=== PATIENT | female | born 1940 | race Caucasian/White ===

== ENCOUNTER → 2017-02-05 | Outpatient (CLI) | payer MEDICARE, BC ==
[~2017-02-05] MED LIST: ATARAX PO; BUSPAR PO; BUSPAR15 M2; DESYREL50 MG; FLAGYL PO; LAMICTAL25 MG PO; LEVAQUIN PO; OXYCONTIN20 MG PO; PAXIL PO; PAXIL40 MG PO; PERIACTIN4 MG PO; PHENERGAN PO; PRILOSEC40 MG PO; ROBAXIN 750750 M1 PO; SEROQUEL PO; TEMAZEPAM PO; [UNRECOGNIZED DRUG - CODE] PO; [UNRECOGNIZED DRUG - OTHER]
--- NOTE | ~2017-02-05 | CO ---
Unit #: [id number] #: [id number] Patient: SHYANNE MIRANDA [id number] [address] [place], [place] [address] [id number] O MR#: [id number] NAME: SHYANNE MIRANDA ROOM: Age: 76 Sex: F Admission Date: 02/05/2017 : 1940 Attending Physician: Felix Bill M.D. Primary Care Physician: Rudy Hill Jr., M.D. Consultation Date: 02/05/2017 CONSULTATION REPORT REASON FOR CONSULTATION Preoperative medical evaluation prior to left total knee arthroplasty scheduled by Dr. Bill for 02/19/2017. HISTORY OF PRESENT ILLNESS The patient is a 76-year-old female, who presents to preprocedural screening for the reason as indicated above. The patient is noted to be a very poor historian and is known to have a history of retrograde amnesia per review of medical records and [facility]. The patient's history is obtained from review of medical records and [facility] and Dr. Bill's office notes today. The patient complains of left knee pain. She has no other complaints at the time of this interview. Per review of medical records and per discussion with the patient, she has no history of myocardial infarction, congestive heart failure, CVA. She reports history of TIA. No known history of kidney disease and/or diabetes. She denies orthopnea, PND, lightheadedness or dizziness, presyncope, syncope, or palpitations. PAST MEDICAL HISTORY 1. Hyperglycemia. 2. Possible COPD is documented per Dr. Graham in [facility]. 3. TIA years ago. 4. Urinary retention. Bladder stone removal. 5. Depression and anxiety. 6. Schizophrenia and bipolar disorder. 7. Retrograde amnesia. 8. History of diverticulitis. 9. Acid reflux. 10. Hyperthyroidism. 11. Anemia. 12. Osteoarthritis. 13. Breast cancer in both breasts. PAST SURGICAL HISTORY 1. Right mastectomy. 2. Left mastectomy. 3. Appendectomy. 4. Hysterectomy. 5. Right rotator cuff repair. 6. Right total knee arthroplasty. 7. Bladder stone removal. 8. Cysto for bladder neck contracture. 9. Right hip fracture pinning. 10. Andrew fundoplication. Unit #: [id number] #: [id number] Patient: SHYANNE MIRANDA Please note, this patient reports having severe nausea and vomiting after receiving general anesthesia. ALLERGIES No known drug intolerances. MEDICATIONS The patient takes the following medications. Please note, the patient is going to call and confirm doses of all of these: OxyContin, Paxil, Desyrel, and BuSpar. SOCIAL HISTORY Denies tobacco use, EtOH use, or illicit drug use. FAMILY HISTORY Per review of Dr. Bill's office note, cancer. REVIEW OF SYSTEMS Other than complaints of left knee pain. A 10-point review of systems is negative except as indicated under history of present illness above. PHYSICAL EXAMINATION GENERAL: A 76-year-old female, awake, alert, in no acute distress. VITAL SIGNS: Temperature 96.9, heart rate 82, respiratory rate 20, blood pressure 136/84, oxygen saturation 95% on room air. HEENT: Atraumatic and normocephalic. Sclerae anicteric. No discharge from eyes, ears, or nares. LYMPH: No preauricular, postauricular, tonsillar, submental, anterior-posterior cervical supra or infraclavicular adenopathy. ENDOCRINE: No thyromegaly, thyroid nodules, or tenderness. RESPIRATORY: Clear to auscultation in all youssef bilaterally without wheezes, rhonchi, or rales. CARDIOVASCULAR: S1, S2. Regular rate and rhythm without murmur or rub. GI: Bowel sounds are positive x4. Soft, nontender, nondistended. EXTREMITIES: 1+ bilateral lower extremity edema. No cyanosis or clubbing. NEUROLOGIC: Cranial nerves II through XII grossly intact. Speech clear. Alert. DIAGNOSTIC STUDIES LABORATORY RESULTS: WBC 6.7, hemoglobin 12.4, hematocrit 38.5, platelets 269,000. Sodium 143, potassium 4.4, chloride 110, CO2 of 24, glucose 84, BUN 13, creatinine 0.9, calcium 9.2. AST 18, ALT 11, alkaline phos 83, bilirubin total 0.4, total protein 6.6, albumin 3.9. PTT 10.8, INR 1.0. Blood type A negative, antibody screen negative. Urinalysis pending at this time. MRSA screen pending at this time. IMAGING STUDIES: Two-view chest x-ray report pending at this time. CARDIOVASCULAR STUDIES: Normal sinus rhythm and normal voltage criteria for LVH may be normal variant confirmed tracing pending at this time. IMPRESSION The patient is a 76-year-old female with: 1. Osteoarthritis, presents to preprocedural screening for medical Unit #: [id number] #: [id number] Patient: SHYANNE MIRANDA evaluation prior to right total knee arthroplasty. The patient's Balderas revised cardiac risk index is equal to 1.0%. This represents the patient's risk of cardiac , fatal or nonfatal myocardial infarction, cardiopulmonary arrest, arrhythmia and/or pulmonary edema. This has been discussed in detail with the patient and her grandson, who is present during the interview today. They both verbalized understanding this information and the patient wishes to proceed with surgery as scheduled at this time. 2. Hypertension. Monitor and adjust medications postoperatively if indicated. 3. Hypothyroidism. TSH and free T4 pending at this time. 4. Depression and anxiety, stable. 5. History of bilateral breast cancer, status post bilateral mastectomy. 6. History of bipolar disorder. 7. History of schizophrenia. 8. History of chronic obstructive pulmonary disease. 9. History of transient ischemic attack and history of retrograde amnesia. Thank you for allowing us to participate in care of this patient. Again, this patient is a poor historian and information has been collected primarily from review of medical records and [facility] today. The patient is to call in the dosages and to confirm all medications dictated above. We will gladly follow her for postop medical management pending any further recommendations for preop evaluation by Dr. Bill and his order postoperatively. Dictated by... Teresita Tillman A.P.R.N. for Gi Cui/kelby TD: 02/06/2017 05:09 JOB #: [id number] CONSULTATION REPORT Page 1 of 1 X Teresita Tillman APRN X CONSULTATION REPORT
--- NOTE | ~2017-02-05 | CR63 ---
[facility] A Service of [facility] RADIOLOGY TEXT RESULTS PATIENT: SHYANNE MIRANDA LOCATION: [facility] : 38 UNIT #: [id number] AGE: [address]: Felix Bill MD SEX: F ORDER DR: [id number] [facility] [address] [place], [place] [address] [id number] O MR#: [id number] Acc #: [id number] NAME: SHYANNE MIRANDA : 1940 SEX: F STUDY DATE/TIME: 02/05/2017 14:46 UNIT: [facility] ROOM: STUDY DESCRIPTION: CR Chest 2 View Attending Physician: Felix Bill M.D. Ordering Physician: Felix Bill M.D. Primary Care Physician: Rudy Hill Jr., M.D. MEDICAL IMAGING REPORT This report is preliminary unless electronic signature is present EXAM Chest PA and lateral, 02/05/2017 HISTORY Preop left total knee arthroplasty. FINDINGS PA and lateral views of the chest are obtained and compared directly to the previous study of 10/21/2015. Heart size is normal. Lungs show underlying chronic interstitial lung disease particularly at the apices. There are postsurgical changes in the left axilla and in the epigastrium. No acute infiltrates are identified. CONCLUSION Underlying chronic interstitial lung disease. Postsurgical changes noted above. No acute process identified. Dictated by... Anshul Chong M.D. THIS IS AN ELECTRONICALLY VERIFIED REPORT Anshul Chong M.D. at 02/07/2017 3:10 PM Jennifer TD: 02/05/2017 20:42 JOB #: [id number] MEDICAL IMAGING REPORT Page 1 of 1 COPY
--- NOTE | ~2017-02-05 | EKG ---
PATIENT: SHYANNE MIRANDA UNIT #: [id number] Ventricular Rate: 78 BPM Atrial Rate: 78 BPM P-R Interval: 126 ms QRS Duration: 96 ms Q-T Interval: 402 ms QTC Calculation(Bezet): 458 ms P [place]: 12 degrees Calculated R [place]: 7 degrees Calculated T [place]: 49 degrees Diagnosis Line: Normal sinus rhythm Diagnosis Line: Minimal voltage criteria for LVH, may be normal Diagnosis Line: variant Diagnosis Line: Borderline ECG Diagnosis Line: When compared with ECG of 04-MAR-2013 05:28, Diagnosis Line: No significant change was found Diagnosis Line: Confirmed by EB BLACKBURN MD ([id number]) on Diagnosis Line: 02/06/2017 2:22:32 PM INTERPRETING MD: ALEXEY CARSON
[2017-02-05 12:25] LABS: HEMATOCRIT 38.5 % (35.0-45.0); HEMOGLOBIN 12.4 gm/dL (12.0-16.0); MEAN CELL VOLUME 82.9 FL (83-96); MEAN CORPUSCULAR HEMOGLOBIN 26.6 PG (28-34); MEAN CORPUSCULAR HGB CONC 32.1 g/dL (30-36); MEAN PLATELET VOLUME 7.4 FL (6.5-11.5); RED BLOOD COUNT 4.65 X10e (3.90-5.30); RED CELL DISTRIBUTION WIDTH 16.8 % (11.0-15.5); WHITE BLOOD COUNT 6.7 X10e3 (4.0-10.5)
[2017-02-05 12:34] LABS: PROTHROMBIN TIME (PATIENT) 10.8 SECONDS (9.6-11.5)
[2017-02-05 13:30] LABS: ALBUMIN SERUM 3.9 g/dL (3.5-5.0); ALKALINE PHOSPHATASE 83 U/L (32-92); ALT (SGPT) 11 U/L (10-40); AST (SGOT) 18 U/L (10-42); BILIRUBIN,TOTAL 0.4 mg/dL (0.2-2.0); BLOOD UREA NITROGEN 13 mg/dL (9-23); BUN/CREATININE RATIO 14.44; CALCIUM SERUM 9.2 mg/dL (8.4-10.2); CARBON DIOXIDE 24 mmol/L (22-31); CHLORIDE 110 mmol/L (100-111); CREATININE SERUM 0.9 mg/dL (0.6-1.4); GLOM FILT RATE Estimated ABOVE60 mL/min (>60); GLUCOSE FASTING 84 mg/dL (70-110); POTASSIUM 4.4 mmol/L (3.5-5.1); PROTEIN TOTAL SERUM 6.6 g/dL (6.0-8.3); SODIUM 143 mmol/L (135-145)
[2017-02-05 14:45] LABS: URINE APPEARANCE CLEAR; URINE BILIRUBIN NEG (NEG); URINE BLOOD NEG (NEG); URINE COLOR YELLOW; URINE GLUCOSE NEG (NEG); URINE KETONE NEG (NEG); URINE LEUKOCYTE ESTERASE 1+ (NEG); URINE NITRATE NEG (NEG); URINE PH 5.5 (5-8); URINE PROTEIN NEG (NEG); URINE SPECIFIC GRAVITY 1.017 (1.003-1.035); URINE UROBILINOGEN 0.2 MG/DL (NEG)
[2017-02-05 14:48] LABS: CULTURE INDICATED? YES; URBCS1 AUWI 0-2 /[HPF] (0-2); URINE BACTERIA AUWI NEG (NEGATIVE); URINE SQUAMOUS EPITHELIAL CELL NONE SEEN /[HPF]
[2017-02-05 15:07] LABS: THYROID STIMULATING HORMONE 5.48 uIU/ml (0.34-5.60)
[2017-02-05 15:14] LABS: FREE THYROXIN (T4) 0.55 ng/dL (0.58-1.64)
== END | disposition home or self-care (01) ==
LOC: CAMB 11:48
PROVIDERS: Orthopaedic Surgery
DX: Z01.818 Encounter for other preprocedural examination (principal); M17.12 Unilateral primary osteoarthritis, left knee; E03.9 Hypothyroidism, unspecified; I10 Essential (primary) hypertension; F41.8 Other specified anxiety disorders; Z98.890 Other specified postprocedural states; Z79.01 Long term (current) use of anticoagulants
CPT/HCPCS: 36415; 71020; 80053; 81003; 84439; 84443; 85027; 85610; 86850; 86900; 86901; 87070; 87086; 93005

== ENCOUNTER 2017-02-19 07:42 | Inpatient (IN) | payer MEDICARE, BC ==
--- NOTE | ~2017-02-19 | OR ---
Unit #: [id number] #: [id number] Patient: SHYANNE MIRANDA [id number] [address] [place], [place] [address] [id number] I MR#: [id number] NAME: SHYANNE MIRANDA ROOM: [facility] Date of Procedure: 02/19/2017 Admission Date: 02/19/2017 Surgeon: Felix Bill M.D. : 1940 Attending Physician: Felix Bill M.D. Primary Care Physician: Rudy Hill Jr., M.D. OPERATIVE REPORT PREOPERATIVE DIAGNOSIS Primary localized osteoarthritis of the left knee. POSTOPERATIVE DIAGNOSIS Primary localized osteoarthritis of the left knee. PROCEDURE PERFORMED Left total knee. ASSISTANTS Melony and Tiffani. ANESTHESIA Adductor canal block plus general. ESTIMATED BLOOD LOSS 100 mL. INDICATIONS FOR SURGERY This is a 76-year-old lady with severe pain in her left knee. She has had pain for months. It has gotten progressively worse. The pain limits her activity of daily living such as standing, walking, and interferes with sleep. X-rays show she has [id number] with subchondral sclerosis and periarticular osteophytes. She has tried injections and anti-inflammatories with no relief of her discomfort. DESCRIPTION OF PROCEDURE The patient was brought to the holding room, given an adductor canal block and 1 g of Kefzol. The Kefzol will be continued postop, but discontinued within 23 hours from the start time of surgery. She was brought back to the operating room and given a general anesthetic. Tourniquet placed around the left thigh. The left leg was prepped and draped in a sterile fashion. Tourniquet was inflated to 250. A straight anterior skin incision was made. The subcutaneous dissected away and a medial arthrotomy was performed. Patella was slid to the side. Osteophytes removed from the femur. Intramedullary guide was used and a 6-degree valgus cut was made on the distal femur. The femur was sized and found to be a size 4 from the [employer] knee system. The anterior-posterior cutting block was applied. Rotation was checked in the knee. Anterior and posterior cuts were made along with the chamfer cuts. Proximal tibial cut was made using a 0-degree cutting block. It was sized at 3. We then removed any posterior condylar osteophytes and remaining meniscal Unit #: [id number] #: [id number] Patient: SHYANNE MIRANDA fragments were debrided. We then injected the posterior capsule and the periosteum with ropivacaine mixture. Trial femur was applied. The drill holes were made for lugs on the femoral component. The trial tibia was applied with an 8 insert. The knee came to full extension and good stability in extension and flexion. Rotation of the tibia was marked. The external alignment guide showed appropriate alignment of the limb. The patella was grasped with 2 towel clips, measured 20 mm thick, cut smooth at 12 to 13 and a 38 patella was the appropriate size. Three drill holes were made. Trial patella applied and it tracked properly. We then removed all the trials, used the drill and punch for the tibial tray. The knee was irrigated and dried while the cement was mixed. Then, all 3 components were cemented simultaneously. Once again, it was a size 4 femur cruciate retaining, size 3 all poly tibia, 8 mm thick, and a 38 patella from the [employer] knee system. The knee was held in extension while cement hardened. After it was hardened, the tourniquet was released. Hemostasis was obtained and then the wound was irrigated with a dilute Betadine solution and bacitracin and then closed using 0 Ethibond in the arthrotomy, 0 and 2-0 Vicryl in the subcutaneous, and den in the skin. executive personal assistant, Randell Ty was present throughout the entire case. Dictated by... Gi Andrade/kelby TD: 02/20/2017 01:35 JOB #: [id number] OPERATIVE REPORT Page 1 of 1 X Felix Bill MD PROCEDURE OPERATIVE NOTE
--- NOTE | ~2017-02-19 | DS ---
Unit #: [id number] #: [id number] Patient: SHYANNE MIRANDA [id number] [address] [place], [place] [address] [id number] I MR#: [id number] NAME: SHYANNE MIRANDA ROOM: 453 Age: 76 Sex: F Admission Date: 02/19/2017 : 1940 Discharge Date: 02/20/2017 Attending Physician: Felix Bill M.D. Primary Care Physician: Rudy Hill Jr., M.D. DISCHARGE SUMMARY ADMITTING DIAGNOSIS Primary localized osteoarthritis of the left knee. DISCHARGE DIAGNOSIS Primary localized osteoarthritis of the left knee. PROCEDURE IN THE HOSPITAL Left total knee. HOSPITAL COURSE The patient was admitted on 02/19, taken to the operating room where she underwent the above procedure. Postoperatively, she has done well. Her pain is controlled. Neurovascular exam is intact. Her hemoglobin is 10.5 this morning with an INR of 1.4. She will be discharged on Coumadin 5 mg a day for DVT prophylaxis and will check he protimes tomorrow and Sunday and adjust her dose appropriately. She is weight bearing as tolerated. Her condition on discharge is improved and her disposition is to rehab. MEDICATIONS Her medications are her routine home medicines plus her Coumadin and her pain medicine which is Percocet 10/325. Dictated by... Felix Bill M.D. CINTIA/claudia TD: 02/20/2017 11:17 JOB #: [id number] DISCHARGE SUMMARY Page 1 of 1 X Felix Bill MD X DISCHARGE SUMMARY
[~2017-02-19 07:42] MED LIST changes: -BUSPAR15 M2; -DESYREL50 MG; -OXYCONTIN20 MG PO; -PAXIL40 MG PO
[2017-02-19] MEDS ORDERED: OXYCONTIN20 MG PO (08:56)
[2017-02-19] MEDS ORDERED: PAXIL40 MG PO (08:57)
[2017-02-19] MEDS ORDERED: DESYREL50 MG (08:59)
[2017-02-19 09:17] LABS: INR 1.1; PROTHROMBIN TIME (PATIENT) 11.2 SECONDS (9.6-11.5)
[2017-02-19] MEDS ORDERED: BUSPAR15 M2 (12:58)
[2017-02-20 03:13] LABS: HEMATOCRIT 32.6 % (35.0-45.0); HEMOGLOBIN 10.5 gm/dL (12.0-16.0)
[2017-02-20 03:28] LABS: INR 1.4; PROTHROMBIN TIME (PATIENT) 14.8 SECONDS (9.6-11.5)
[2017-02-20 03:42] LABS: CALCIUM SERUM 8.6 mg/dL (8.4-10.2); GLOM FILT RATE Estimated 53.9 mL/min (>60); POTASSIUM 4.5 mmol/L (3.5-5.1)
== END 2017-02-20 16:46 | DRG 470 ==
LOC: CSUR 07:42 → CPACUOF 09:22 → C4B 14:30
PROVIDERS: Nurse Practitioner; Orthopaedic Surgery
PROC: 0SRD0J9 Replacement of Left Knee Joint with Synthetic Substitute, Cemented, Open Approach (ICD-10-PCS; principal; 2017-02-19 10:00)
DX: M17.12 Unilateral primary osteoarthritis, left knee (principal); J44.9 Chronic obstructive pulmonary disease, unspecified; I10 Essential (primary) hypertension; E03.9 Hypothyroidism, unspecified; F41.9 Anxiety disorder, unspecified; G89.29 Other chronic pain; Z91.81 History of falling; H91.90 Unspecified hearing loss, unspecified ear; F31.9 Bipolar disorder, unspecified; Z86.73 Personal history of transient ischemic attack (TIA), and cerebral infarction without residual deficits; Z85.3 Personal history of malignant neoplasm of breast; Z92.21 Personal history of antineoplastic chemotherapy; Z92.3 Personal history of irradiation; Z96.651 Presence of right artificial knee joint; Z90.10 Acquired absence of unspecified breast and nipple; Z90.710 Acquired absence of both cervix and uterus; Z80.8 Family history of malignant neoplasm of other organs or systems; F20.9 Schizophrenia, unspecified
CPT/HCPCS: 80048; 83735; 85014; 85018; 85610; 94760; 97110; 97116; 97162; C1776; G8978-GP; G8979-GP; G8980-GP; J0131; J0171; J0690; J0735; J1100; J1170; J1885; J2250; J2405; J2795; J3010